=== PATIENT | male | born 2000 | race Caucasian/White ===

== ENCOUNTER 2018-07-12 22:39 | Emergency (ER) | payer OTHER ==
[~2018-07-12] VITALS: Ht 177.8 cm; Wt 76.9 kg
[2018-07-12 22:43] VITALS: Ht 177.8 cm; Wt 76.9 kg
[2018-07-13 00:25] LABS: microscopic required? NO
[2018-07-13 00:38] LABS: BASOPHIL % 0.6 % (0-2); PLATELET COUNT 208 x10^3mcL (130-400); RED CELL DISTRIBUTION WIDTH 12.7 % (11.5-14.5)
[2018-07-13 00:42] LABS: UA SPECIFIC GRAVITY 1.025 (1.005-1.035); urine erythrocyte NEGATIVE (NEGATIVE)
[2018-07-13 00:53] LABS: CALCIUM 9.1 mg/dL (8.5-10.1); CARBON DIOXIDE 29.4 mmol/L (21-32); CHLORIDE SERUM 105 mmol/L (98-107); GFR1 > 60 mL/min; GLUCOSE SERUM 98 mg/dL (74-106); POTASSIUM SERUM 4.1 mmol/L (3.5-5.1); SODIUM SERUM 142 mmol/L (136-145)
[2018-07-13 00:57] LABS: ALBUMIN 4.1 g/dL (3.4-5.0); ALKALINE PHOSPHATASE 71 U/L (46-116); ALT/SGPT 17 U/L (16-63); AST/SGOT 17 U/L (15-37); BILIRUBIN TOTAL 0.4 mg/dL (0.20-1.00); LIPASE 80 IU/L (73-393); TOTAL PROTEIN, SERUM 7.6 g/dL (6.4-8.2)
[2018-07-13 01:38] VITALS: BP 114/67
== END 2018-07-13 01:38 | disposition home or self-care (01) ==
LOC: ED 22:39
PROVIDERS: Emergency Medicine
DX: I88.0 Nonspecific mesenteric lymphadenitis (principal)
CPT/HCPCS: J1885; J2405; J7030

== ENCOUNTER 2018-09-01 14:30 | Emergency (ER) | payer OTHER ==
[~2018-09-01] VITALS: Ht 180.3 cm; Wt 77.1 kg
[2018-09-01 14:56] VITALS: Ht 180.3 cm; Wt 77.1 kg
[2018-09-01 16:30] VITALS: BP 130/70
== END 2018-09-01 16:30 | disposition home or self-care (01) ==
LOC: ED 14:30
DX: M54.2 Cervicalgia (principal)